=== PATIENT | female | born 1995 | race Caucasian/White ===

== ENCOUNTER 2017-03-27 01:27 | Emergency (ER) | payer OTHER ==
[2017-03-27 01:59] VITALS: BP 118/69; PULSE 84; TEMP 98.4; BMI 19.7
--- NOTE | 2017-03-27 02:16 | PDOC ---
History of Present Illness - General Chief Complaint: Pain Stated Complaint: ABD PAIN Time Seen by Provider: 03/27/17 02:04 - History of Present Illness Initial Comments: 03/27/17 04:15 Patient is a 21 y.o. female with a PMH of GERD who presents c/o of acute onset of LUQ abdominal pain. Patient states the pain started acutely at 6 p.m. yesterday evening while she was sitting at her desk at work. Pain is sharp, constant, non-radiating/localized to her LUQ, relieved by palpation pressure. Patient denies any associated nausea/vomiting, constipation/diarrhea. Patient' s most recent BM was immediately prior to presentation in the ED and was normal. Patient is tolerating PO intake. Patient notes she has been evaluated by GI (Dr. Branham) previously for her GERD, endscopy showed no active PUD. Patient denies any recent illness, recent travel, toxic ingestion, chest pain, shortness of breath. [facility]: denies PMD: Dr. Garcia Past History - Past Medical History Allergies/Adverse Reactions: Allergies Allergy/AdvReac Type Severity Reaction Status Date / Time No Known Allergies Allergy Verified 03/27/17 04:31 Home Medications: Ambulatory Orders No Home Medications 0 dose .ROUTE UTDICT 12/12/12 Asthma: Yes - Immunization History Immunization Up to Date: Yes - Suicide/Smoking/Psychosocial Hx Smoking Status: No Smoking History: Never smoked Have you smoked in the past 12 months: No Number of Cigarettes Smoked Daily: 0 Information on smoking cessation initiated: No Hx Alcohol Use: No Drug/Substance Use Hx: No Substance Use Type: None Review of Systems - Review of Systems Constitutional: No: Chills, Fever Respiratory: No: Shortness of Breath Cardiac (ROS): No: Chest Pain, Edema, Irregular Heart Rate, Palpitations ABD/GI: No: Abd. Pain w/ defecation, Blood Streaked Bowels, Constipated, Diarrhea, Nausea, Rectal Bleeding, Vomiting : No: Burning, Dysuria *Physical Exam - Vital Signs Last Vital Signs Temp Pulse Resp BP Pulse Ox 98.4 F 84 18 118/69 100 03/27/17 01:53 03/27/17 01:53 03/27/17 01:53 03/27/17 01:53 03/27/17 01:53 - Physical Exam General Appearance: Yes: Nourished, Thin Neck: positive: Trachea midline, Supple Respiratory/Chest: positive: Lungs Clear Cardiovascular: positive: S1, S2 Gastrointestinal/Abdominal: positive: Normal Bowel Sounds, Soft. negative: Protuberent, Distended, Guarding, Rebound Musculoskeletal: negative: CVA Tenderness (R), CVA Tenderness (L) Extremity: positive: Normal Capillary Refill, Normal Inspection ED Treatment Course - LABORATORY CBC & Chemistry Diagram: 03/27/17 03:16 03/27/17 03:16 Medical Decision Making - Medical Decision Making 03/27/17 17:47 21 y.o. female with LUQ abdominal pain, relieved by palpation. No splenomegaly on PE. Labs wnL. UA 1+ blood w/epithelial cells. Symptomatic improvement with Toradol. Overall clincal picture suggestive of muskoskeletal pain. Will discharge home with return precautions and supportive care. *DC/Admit/Observation/Transfer Diagnosis at time of Disposition: Abdominal pain - Discharge Dispostion Disposition: HOME Condition at time of disposition: Good Admit: No - Referrals Referrals: Jordin Garcia MD [Primary Care Provider] - - Patient Instructions Printed Discharge Instructions: DI for Abdominal Pain-Adult Additional Instructions: You were evaluated today for abdominal pain. All of your labs showed no concerning findings. Please follow-up with your primary care doctor for further evaluation. Return to the Emergency Department for any new/worsening/ concerning symptoms. - Post Discharge Activity Forms/Work/School Notes: Back to Work
[2017-03-27 03:31] LABS: BASO % 0.7 % (0-2.0); EOS % 0.8 % (0-4.5); HEMATOCRIT 38.6 % (32.4-45.2); HEMOGLOBIN 12.7 GM/dL (10.7-15.3); MCH 25.4 pg (25.7-33.7); MCHC 32.8 g/dl (32.0-36.0); MEAN CELL VOLUME 77.5 fl (80-96); MONO % 9.8 % (3.8-10.2); NEUT % 71.7 % (42.8-82.8); PLATELET COUNT 272 K/MM3 (134-434); RBC 4.98 M/mm3 (3.60-5.2); RDW 13.8 % (11.6-15.6); WHITE BLOOD COUNT 9.1 K/mm3 (4.0-10.0)
[2017-03-27 03:35] LABS: HCG,QUALITATIVE URINE NEGATIVE
[2017-03-27 03:36] LABS: URINE APPEARANCE CLEAR; URINE BILIRUBIN NEGATIVE (NEGATIVE); URINE BLOOD 1+ (NEGATIVE); URINE COLOR YELLOW; URINE GLUCOSE (UA) NEGATIVE (NEGATIVE); URINE KETONE NEGATIVE (NEGATIVE); URINE LEUK ESTERASE NEGATIVE (NEGATIVE); URINE NITRITE NEGATIVE (NEGATIVE); URINE PROTEIN NEGATIVE (NEGATIVE); URINE UROBILINOGEN NEGATIVE mg/dL (0.2-1.0)
[2017-03-27 03:40] LABS: EPI CELLS RARE /HPF (FEW); URINE HYALINE CAST 2 /lpf; URINE MUCUS MANY
[2017-03-27 04:15] LABS: ALBUMIN 4.3 g/dl (3.4-5.0); ALK PHOS 63 U/L (45-117); ANION GAP 6 (8-16); BILIRUBIN,TOTAL 0.5 mg/dL (0.2-1.0); BLOOD UREA NITROGEN 12 mg/dL (7-18); CALCIUM 8.9 mg/dL (8.5-10.1); CHLORIDE 104 mmol/L (98-107); CO2 27 mmol/L (21-32); CREATININE 0.6 mg/dL (0.55-1.02); GLUCOSE,RANDOM 100 mg/dL (74-106); POTASSIUM 4.3 mmol/L (3.5-5.1); SGOT/AST 6 U/L (15-37); SGPT/ALT 18 U/L (12-78); SODIUM 137 mmol/L (136-145); TOT PROT 7.4 g/dl (6.4-8.2)
[2017-03-27] MEDS ORDERED: KETOROLAC TROMETHAMINE 15 MG/ML VIAL IM ONE (04:22)
[2017-03-27] MEDS ORDERED: KETOROLAC TROMETHAMINE 15 MG/ML VIAL ONE (04:26)
== END 2017-03-27 04:38 | disposition home or self-care (01) ==
LOC: JER 01:27
PROC: 3E0233Z Introduction of Anti-inflammatory into Muscle, Percutaneous Approach (ICD-10-PCS; principal; 2017-03-27)
DX: R10.12 Left upper quadrant pain (principal)
CPT/HCPCS: 36415; 80053; 81003; 81015; 84703; 85025; 96372; 99282-25

== ENCOUNTER 2022-02-22 09:39 | Emergency (ER) | payer OTHER ==
[2022-02-22 09:54] VITALS: BP 117/72; PULSE 104; RESP 18; TEMP 100; BMI 24.7
[2022-02-22] MEDS ORDERED: ACETAMINOPHEN 500 MG TABLET (FP) PO ONE (10:04)
[2022-02-22] MEDS ORDERED: ACETAMINOPHEN 500 MG TABLET (FP) ONE (10:43)
== END 2022-02-22 10:49 | disposition home or self-care (01) ==
LOC: JER 09:39
DX: J02.0 Streptococcal pharyngitis (principal)
CPT/HCPCS: 87651; 99283-25